=== PATIENT | male | born 2000 | race Two or more races ===

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

== ENCOUNTER 2020-12-19 02:36 | Emergency (ER) | payer SELFPAY ==
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
[2020-12-19] MEDS ORDERED: Naloxone 0.4 MG/ML SDV IVPUSH ONE (03:08)
[2020-12-19] MEDS ORDERED: Sodium Chloride 0.9% 1,000 ML IV STA (03:17)
== END 2020-12-19 06:32 | disposition home or self-care (01) ==
LOC: JD.ED 02:36
DX: F10.120 Alcohol abuse with intoxication, uncomplicated (principal); R41.82 Altered mental status, unspecified; R53.83 Other fatigue
CPT/HCPCS: 36415; 80053; 80179; 80306; 83735; 85025; 96374; 99284; J2310; J7030; 99283